=== PATIENT | female | born 1970 | race African-American/Black ===

== ENCOUNTER 2024-12-05 16:17 | Emergency (ER) | payer OTHER ==
[~2024-12-05] VITALS: Ht 160 cm; Wt 54.0 kg
[2024-12-05 16:24] VITALS: O2SAT 98
[2024-12-05 17:22] LABS: HEMATOCRIT 38.4 % (36.0-48.0); HEMOGLOBIN 12.8 g/dL (12.0-16.0); MEAN CORPUSCULAR HEMOGLOBIN 27.9 pg (28.0-32.0); MEAN CORPUSCULAR HGB CONC 33.4 g/dL (31.0-37.0); MEAN CORPUSCULAR VOLUME 83.8 fL (81.0-99.0); PLATELET 261 x1000/uL (130-400); RED BLOOD CELL COUNT 4.58 mill/uL (4.2-5.4); RED CELL DISTRIBUTION WIDTH 12.8 % (11.6-14.6); WHITE BLOOD COUNT 5.9 x1000/uL (4.5-11.0)
[2024-12-05] MEDS ORDERED: DICYCLOMINE 10 MG/5 ML ORAL SYR PO STA (17:26)
[2024-12-05 17:29] LABS: CHLORIDE 102 mEq/L (98-107); POTASSIUM 3.2 mEq/L (3.5-5.1); SODIUM 141 mEq/L (136-145)
[2024-12-05 17:30] LABS: CARBON DIOXIDE 29 mEq/L (21-32)
[2024-12-05 17:32] LABS: PARTIAL THROMBOPLASTIN TIME 30.1 sec (23.4-31.0); PROTHROMBIN TIME 10.3 sec (9.6-11.0)
[2024-12-05 17:35] LABS: CREATININE 0.5 mg/dL (0.6-1.0); GLUCOSE 105 mg/dL (70-105); UREA NITROGEN BLOOD 9 mg/dL (9-23)
[2024-12-05 17:37] LABS: TROPONIN I HIGH SENSITIVITY < 4 ng/L (3.0-34)
[2024-12-05] MEDS: ONDANSETRON 4MG ODT PO STA (17:42)
[2024-12-05] MEDS: MAGNESIUM/ALUMINUM HYDROXIDE/SIMETHICONE 30ML UDC PO STA (17:42)
[2024-12-05] MEDS: DICYCLOMINE HCL 10MG CAPSULE PO NR (17:42)
[2024-12-05] MEDS: FAMOTIDINE 20MG TABLET PO ONE (17:42)
[2024-12-05] MEDS: POTASSIUM CHLORIDE 20MEQ TABLET SR PO ONE (17:52)
[2024-12-05 17:59] LABS: ALANINE AMINOTRANSFERASE 62 IU/L (10-49); ALBUMIN 4.7 g/dL (3.2-4.8); ASPARTATE AMINOTRANSFERASE 52 IU/L (<34)
[2024-12-05 18:00] LABS: BILIRUBIN DIRECT 0.1 mg/dL (<=3.0); BILIRUBIN TOTAL 0.4 mg/dL (0.1-1.0); PROTEIN TOTAL 7.3 g/dL (6.0-8.3)
[2024-12-05] MEDS ORDERED: FAMO-135 MT (18:33)
[2024-12-05 19:06] VITALS: BP 96/50; PULSE 73; RESP 18; TEMP 36.7; O2SAT 98
== END 2024-12-05 19:15 | disposition home or self-care (01) ==
LOC: ER 16:17
DX: K29.70 Gastritis, unspecified, without bleeding (principal); E87.6 Hypokalemia; Z79.899 Other long term (current) drug therapy
CPT/HCPCS: 99285; 71045; 80076; 80048; 83690; 85027; 85610; 85730; 84484; 36415; 93005; Q0162